=== PATIENT | male | born 1940 | race Caucasian/White ===

== ENCOUNTER 2017-07-24 06:34 | Inpatient (IN) | payer OTHER, MEDICAID ==
[~2017-07-24] VITALS: Ht 177.8 cm; Wt 103.8 kg
[~2017-07-24 06:34] MED LIST: AMLO1POW2; ASPI325T17 PO; BENA1TAB10 PO; BENA20TA61 PO; CELE200C PO; CHOL100012 PO; CIPR500T3 PO; CLOP75TA PO; DIGO125T10 PO; DILT240C80 PO; DOFE500C; GABA300C10 PO; HYDR-2440 PO; METO50TA82 PO; POLY17PO5 PO; RIVA20TA PO; ROSU20TA PO; TEMA30CA PO; ZOLP-413 PO
[2017-07-24] MEDS ORDERED: SODIUM CHLORIDE FLUSH 10ML SYR IVF ONE (07:00)
[2017-07-24] MEDS ORDERED: methylPREDNISolone SOD SUCC 125 MG/2 ML IVP ONE (07:00)
[2017-07-24 07:26] LABS: BASOPHILS # (AUTO) 0.02 x10^3/uL (0-0.1); BASOPHILS % (AUTO) 0 % (0-1); EOSINOPHILS # (AUTO) 0.05 x10^3/uL (0-0.4); EOSINOPHILS % (AUTO) 1 % (1-7); LYMPHOCYTES # (AUTO) 1.46 x10^3/uL (1-3.4); LYMPHOCYTES % (AUTO) 15 % (22-44); MD NO; MEAN CORPUSCULAR HEMOGLOBIN 30.5 pg (27.5-34.5); MEAN CORPUSCULAR HGB CONC 33.8 g/dL (33.2-36.2); MEAN PLATELET VOLUME 9.2 fL (7.4-10.4); MONOCYTES # (AUTO) 0.58 x10^3/uL (0.2-0.8); MONOCYTES % (AUTO) 6 % (2-9); NEUTROPHILS # (AUTO) 7.75 x10^3/uL (1.8-6.8); NEUTROPHILS % (AUTO) 79 % (42-75); PLATELET COUNT 176 x10^3/uL (130-400); RED BLOOD COUNT 5.75 x10^6/uL (4.38-5.82)
[2017-07-24 07:35] LABS: INTERNATIONAL NORMALIZED RATIO 2.82 (0.93-1.1); PROTHROMBIN TIME 28.5 Seconds (9.6-11.5)
[2017-07-24] MEDS ORDERED: methylPREDNISolone SOD SUCC 125 MG/2 ML ONE (07:36)
[2017-07-24 07:39] LABS: ALANINE AMINOTRANSFERASE 36 U/L (12-78); ALBUMIN 3.7 g/dL (3.4-5.0); ANION GAP 9 mmol/L (5-15); CALCIUM 8.5 mg/dL (8.5-10.1); CHLORIDE 107 mmol/L (98-107)
[2017-07-24 07:44] LABS: ALKALINE PHOSPHATASE 68 U/L (45-117); BILIRUBIN,TOTAL 1.1 mg/dL (0.2-1.0); TOTAL PROTEIN 7.4 g/dL (6.4-8.2); TROPONIN I < 0.015 ng/mL (0.000-0.045)
[2017-07-24] MEDS ORDERED: AZITHROMYCIN 500 MG in SODIUM CHLORIDE 0.9% 250 ML IVPB ONE (08:00)
[2017-07-24] MEDS ORDERED: CEFTRIAXONE PMX 1GM/50ML 50 ML IVPB ONE (08:00)
[2017-07-24] MEDS ORDERED: SODIUM CHLORIDE 0.9% 1,000ML IVBOLUS ONE (08:00)
[2017-07-24] MEDS ORDERED: CEFTRIAXONE PMX 1GM/50ML 50 ML ONE (08:14)
[2017-07-24 08:46] LABS: RAPID INFLUENZA A Negative (Negative); RAPID INFLUENZA B Negative (Negative)
[2017-07-24] MEDS ORDERED: SODIUM CHLORIDE FLUSH 10ML SYR IVF PRN (09:30)
[2017-07-24] MEDS ORDERED: LACTULOSE 10 GM/15 ML UDC PO SCH (10:30)
[2017-07-24] MEDS ORDERED: ENALAPRILAT 1.25 MG/ML, 2ML IVPush PRN (10:30)
[2017-07-24] MEDS ORDERED: GUAIFENESIN/DM 200-20MG, 10ML UDC PO PRN (10:30)
[2017-07-24] MEDS ORDERED: ONDANSETRON ODT 4 MG PO PRN (10:30)
[2017-07-24] MEDS ORDERED: ACETAMINOPHEN 325 MG TABLET PO PRN (10:30)
[2017-07-24 10:58] VITALS: BP 149/79
[2017-07-24] MEDS ORDERED: AMLODIPINE 2.5 MG TABLET PO PRN (11:00)
[2017-07-24] MEDS ORDERED: ALBUTEROL/IPRATROPIUM 2.5MG/0.5MG, 3 ML NPPB PRN (12:00)
[2017-07-24 13:19] VITALS: BP 130/80
[2017-07-24] MEDS: BENAZEPRIL 20 MG TABLET PO SCH (20:32)
[2017-07-24 20:47] VITALS: BP 165/83
[2017-07-24] MEDS: DOFETILIDE PO SCH (21:00)
[2017-07-24] MEDS ORDERED: (Rosuvastatin Calcium** (Crestor**) 20 MG) PO SCH (21:00)
[2017-07-24] MEDS: ATORVASTATIN 40 MG TABLET PO SCH (22:55)
[2017-07-24] MEDS: DOFETILIDE 125 MCG CAPSULE PO SCH (22:55)
[2017-07-24] MEDS: ZOLPIDEM 5MG TABLET PO PRN (22:55)
[2017-07-25 03:35] VITALS: BP 125/65
[2017-07-25 04:08] LABS: ANION GAP 5 mmol/L (5-15); CALCIUM 7.8 mg/dL (8.5-10.1); CHLORIDE 112 mmol/L (98-107); CREATININE 0.87 mg/dL (0.7-1.3)
[2017-07-25 07:44] VITALS: BP 132/71
[2017-07-25] MEDS: CEFTRIAXONE PMX 2GM/50ML 50 ML IV SCH (08:12)
[2017-07-25] MEDS: TEMAZEPAM 30 MG CAPSULE PO SCH ×2 (08:12→20:49)
[2017-07-25] MEDS: CHOLECALCIFEROL 1,000 UNIT TABLET PO SCH (08:13)
[2017-07-25] MEDS: GABAPENTIN 300 MG CAPSULE PO SCH (08:13)
[2017-07-25] MEDS: RIVAROXABAN 20 MG TABLET PO SCH (08:13)
[2017-07-25] MEDS: BENAZEPRIL 20 MG TABLET PO SCH ×2 (08:13→20:49)
[2017-07-25] MEDS: AZITHROMYCIN 250 MG TABLET PO SCH (08:13)
[2017-07-25] MEDS: DOFETILIDE PO SCH ×2 (08:14→20:13)
[2017-07-25] MEDS: DOFETILIDE 125 MCG CAPSULE PO SCH ×2 (09:30→20:50)
[2017-07-25 14:01] VITALS: BP 148/72
[2017-07-25] MEDS ORDERED: OMNIPAQUE 350 MG/ML, 100ML BOTTLE ONE (16:16)
[2017-07-25 20:00] VITALS: BP 179/82
[2017-07-25 20:46] VITALS: BP 145/79
[2017-07-25] MEDS: ATORVASTATIN 40 MG TABLET PO SCH (20:49)
[2017-07-25] MEDS ORDERED: DILTIAZEM 5 MG/ML, 5ML IVPush ONE (22:00)
[2017-07-26 00:12] VITALS: BP 168/82
[2017-07-26] MEDS: ZOLPIDEM 5MG TABLET PO PRN (01:09)
[2017-07-26 07:32] VITALS: BP 138/88
[2017-07-26 07:44] LABS: ANION GAP 4 mmol/L (5-15); CALCIUM 7.9 mg/dL (8.5-10.1); CHLORIDE 110 mmol/L (98-107)
[2017-07-26 07:45] LABS: CREATININE 0.68 mg/dL (0.7-1.3)
[2017-07-26] MEDS: DOFETILIDE PO SCH (09:00)
[2017-07-26] MEDS: CHOLECALCIFEROL 1,000 UNIT TABLET PO SCH (09:03)
[2017-07-26] MEDS: GABAPENTIN 300 MG CAPSULE PO SCH (09:03)
[2017-07-26] MEDS: RIVAROXABAN 20 MG TABLET PO SCH (09:03)
[2017-07-26] MEDS: AZITHROMYCIN 250 MG TABLET PO SCH (09:03)
[2017-07-26] MEDS: BENAZEPRIL 20 MG TABLET PO SCH (09:03)
[2017-07-26] MEDS: CEFTRIAXONE PMX 2GM/50ML 50 ML IV SCH (09:03)
[2017-07-26] MEDS: DOFETILIDE 125 MCG CAPSULE PO SCH (09:03)
[2017-07-26 12:37] VITALS: BP 172/85
[2017-07-26] MEDS ORDERED: AZIT250T89 PO (13:10)
[2017-07-26] MEDS ORDERED: CEFD300C37 PO (13:10)
[2017-07-26] MEDS ORDERED: METOPROLOL TARTRATE 25 MG TABLET PO SCH (18:00)
== END 2017-07-26 17:38 | disposition home or self-care (01) | DRG 193 ==
LOC: ED 07:15 → EDIP 09:12 → 4EST 10:51
PROVIDERS: ADMIT Family Medicine; ATTEND Family Medicine
PROC: 5A09357 Assistance with Respiratory Ventilation, Less than 24 Consecutive Hours, Continuous Positive Airway Pressure (ICD-10-PCS; principal; 2017-07-24)
DX: J15.9 Unspecified bacterial pneumonia (principal); J96.01 Acute respiratory failure with hypoxia; I48.92 Unspecified atrial flutter; F19.20 Other psychoactive substance dependence, uncomplicated; J44.0 Chronic obstructive pulmonary disease with (acute) lower respiratory infection; I48.0 Paroxysmal atrial fibrillation; I25.10 Atherosclerotic heart disease of native coronary artery without angina pectoris; I10 Essential (primary) hypertension; G47.00 Insomnia, unspecified; F41.9 Anxiety disorder, unspecified; E78.00 Pure hypercholesterolemia, unspecified; E78.5 Hyperlipidemia, unspecified; F03.90 Unspecified dementia, unspecified severity, without behavioral disturbance, psychotic disturbance, mood disturbance, and anxiety; F11.10 Opioid abuse, uncomplicated; G47.33 Obstructive sleep apnea (adult) (pediatric); Z79.01 Long term (current) use of anticoagulants; Z95.5 Presence of coronary angioplasty implant and graft
CPT/HCPCS: 36415; 36600; 71010; 71275; 80048; 80053; 82803; 83605; 83735; 83880; 84145; 84484; 85025; 85610; 85730; 87040; 87400; 93005; 94660; 96365; 96375; J0456; J0696; Q9967; J2930; J7030; J7050; J7512